=== PATIENT | female | born 1985 | race American Indian/Alaskan Native ===

== ENCOUNTER 2016-04-15 15:48 | Emergency (ER) | payer MEDICAID ==
[2016-04-15 16:49] LABS: Basophils % (Auto) 0.2 % (0.0-1.8); Eosinophils % (Auto) 0.1 % (0.0-4.3); Hematocrit 41.5 % (30.3-42.9); Hemoglobin 13.7 gm/dl (10.1-14.3); Mean Corpuscular HGB Conc 33 % (30-34); Mean Corpuscular Hemoglobin 31 pg (28-32); Mean Corpuscular Volume 93 fl (79-97); Platelet Count 381 K/mm3 (140-440); Red Blood Count 4.48 M/mm3 (3.65-5.03); Red Cell Distribution Width 13.5 % (13.2-15.2); White Blood Count 12.4 K/mm3 (4.5-11.0)
[2016-04-15 16:56] LABS: Bilirubin,Urine NEG (Negative); Blood,Urine NEG (Negative); Ketones,Urine 80 mg/dL (Negative); Leukocyte Esterase,Urine NEG (Negative); Mucus,Urine 3+ /HPF; Nitrite,Urine NEG (Negative); Urobilinogen,Urine < 2.0 mg/dL (<2.0)
[2016-04-15 17:07] LABS: Anion Gap 21 mmol/L; Blood Urea Nitrogen 12 mg/dL (7-17); Calcium 10.2 mg/dL (8.4-10.2); Carbon Dioxide 25 mmol/L (22-30); Glucose 102 mg/dL (65-100); Potassium 3.3 mmol/L (3.6-5.0); Sodium 141 mmol/L (137-145)
[2016-04-15] MEDS ORDERED: TYLENOL PO ONE (21:45)
[2016-04-15] MEDS ORDERED: ZOFRAN ODT PO ONE (21:46)
[2016-04-16] MEDS ORDERED: BENTYL IM ONE (00:45)
[2016-04-16] MEDS ORDERED: NACL 0.9% 1000 ML 1,000 ML IV ONE (00:45)
[2016-04-16] MEDS ORDERED: MORPHINE IV ONE (00:45)
[2016-04-16] MEDS ORDERED: ZOFRAN IV ONE (00:45)
--- NOTE | 2016-04-16 01:45 | Emergency Department Report ---
ED N/V/D HPI - General Chief complaint: Abdominal Pain Stated complaint: ABD PAIN /VOMITTING /3 DAYS Time Seen by Provider: 04/16/16 00:41 Source: patient Mode of arrival: Ambulatory Limitations: No Limitations - History of Present Illness Initial comments: 31-year-old female presents to the emergency department complaining of abdominal pain with nausea, vomiting, and diarrhea. Patient states symptoms have been present for the past 3 days. She has not been able to tolerate anything by mouth. Patient describes cramping abdominal pain. She also reports low back pain secondary to vomiting. She denies seeing any blood. There are no other complaints. MD complaint: nausea, vomiting, diarrhea, abdominal pain -: Gradual, days(s) (3) Description of Vomiting: watery, bilious Description of Diarrhea: water Associated Abdominal Pain: Yes Location: diffuse Radiation: none Severity: moderate Quality: cramping Consistency: constant Improves with: none Worsens with: none Associated Symptoms: denies other symptoms - Related Data Previous Rx's Medication Instructions Recorded Last Taken Type Albuterol Sulfate [Ventolin HFA] 2 puff IH Q6HR PRN #1 hfa.aer.ad 12/21/1301/23 Rx 2 PUFFS Ibuprofen [Motrin] 800 mg PO Q8HR PRN #20 tablet 09/03/15 Unknown Rx Dicyclomine [Bentyl] 20 mg PO QID PRN #20 tablet 04/16/16 Unknown Rx HYDROcodone/APAP 5-325 [[place] 1 each PO Q6HR PRN #15 tablet 04/16/16 Unknown Rx 5-325 mg TAB] Promethazine [Phenergan TAB] 25 mg PO Q6HR PRN #20 tab 04/16/16 Unknown Rx Allergies Allergy/AdvReac Type Severity Reaction Status Date / Time No Known Allergies Allergy Verified 12/21/13 10:57 ED Review of Systems ROS: Stated complaint: ABD PAIN /VOMITTING /3 DAYS Other details as noted in HPI Comment: All other systems reviewed and negative Gastrointestinal: abdominal pain, nausea, vomiting, diarrhea Musculoskeletal: back pain ED Past Medical Hx - Past Medical History Previous Medical History?: Yes Hx Hypertension: Yes (WITH ) Hx Diabetes: No Hx Deep Vein Thrombosis: No Hx Renal Disease: No Hx Sickle Cell Disease: No Hx Seizures: No Hx Asthma: Yes Hx HIV: No - Surgical History Past Surgical History?: No - Family History Family history: no significant - Social History Smoking Status: Current Every Day Smoker Substance Use Type: Alcohol, Marijuana, Non Opiate Pain - Medications Home Medications: Home Medications Medication Instructions Recorded Confirmed Last Taken Type Albuterol Sulfate [Ventolin HFA] 2 puff IH Q6HR PRN #1 hfa.aer.ad 12/21/1301/2501/23/14 Rx 2 PUFFS Ibuprofen [Motrin] 800 mg PO Q8HR PRN #20 tablet 09/03/15 Unknown Rx Dicyclomine [Bentyl] 20 mg PO QID PRN #20 tablet 04/16/16 Unknown Rx HYDROcodone/APAP 5-325 [[place] 1 each PO Q6HR PRN #15 tablet 04/16/16 Unknown Rx 5-325 mg TAB] Promethazine [Phenergan TAB] 25 mg PO Q6HR PRN #20 tab 04/16/16 Unknown Rx ED Physical Exam - General Limitations: No Limitations General appearance: alert, in no apparent distress - Head Head exam: Present: atraumatic, normocephalic - Eye Eye exam: Present: normal appearance, PERRL, EOMI - ENT ENT exam: Present: normal exam, normal orophraynx, mucous membranes moist - Neck Neck exam: Present: normal inspection, full ROM. Absent: tenderness - Respiratory Respiratory exam: Present: normal lung sounds bilaterally. Absent: respiratory distress - Cardiovascular Cardiovascular Exam: Present: regular rate, normal rhythm, normal heart sounds - GI/Abdominal GI/Abdominal exam: Present: soft, normal bowel sounds. Absent: distended, tenderness - Extremities Exam Extremities exam: Present: normal inspection, full ROM. Absent: tenderness - Back Exam Back exam: Present: normal inspection, full ROM. Absent: tenderness - Neurological Exam Neurological exam: Present: alert, oriented X3. Absent: motor sensory deficit - Skin Skin exam: Present: warm, dry, intact ED Course Vital Signs 04/15/16 04/15/16 04/15/16 16:04 21:30 21:43 Temperature 99.3 F 98.7 F Pulse Rate 63 58 L Respiratory 20 18 20 Rate Blood Pressure 133/87 143/82 Blood Pressure [Left] O2 Sat by Pulse 100 100 Oximetry 04/16/16 00:40 Temperature 98.5 F Pulse Rate 59 L Respiratory 18 Rate Blood Pressure Blood Pressure 138/82 [Left] O2 Sat by Pulse 100 Oximetry ED Medical Decision Making - Lab Data Result diagrams: 04/15/16 16:37 04/15/16 16:37 - Medical Decision Making Laboratory results reviewed and discussed with the patient. Patient reports feeling much better following medication. Patient will be discharged home at this time. - Differential Diagnosis gastroenteritis, dehydration, electrolyte abnormality Critical care attestation.: If time is entered above; I have spent that time in minutes in the direct care of this critically ill patient, excluding procedure time. ED Disposition Clinical Impression: Acute gastroenteritis Disposition: DISCHARGED TO HOME OR SELFCARE Is pt being admited?: No Condition: Stable Instructions: Gastroenteritis (ED) Prescriptions: Dicyclomine [Bentyl] 20 mg PO QID PRN #20 tablet PRN Reason: Pain HYDROcodone/APAP 5-325 [[place] 5-325 mg TAB] 1 each PO Q6HR PRN #15 tablet PRN Reason: Pain Promethazine [Phenergan TAB] 25 mg PO Q6HR PRN #20 tab PRN Reason: Nausea Referrals: PRIMARY CARE, [Primary Care Provider] - 3-5 Days Time of Disposition: 02:20
[2016-04-16 03:07] VITALS: BP 102/47
== END 2016-04-16 02:54 | disposition home or self-care (01) ==
LOC: ED 15:48
DX: K52.9 Noninfective gastroenteritis and colitis, unspecified (principal); J45.909 Unspecified asthma, uncomplicated; F17.200 Nicotine dependence, unspecified, uncomplicated; F12.10 Cannabis abuse, uncomplicated
CPT/HCPCS: 36415; 80048; 81001; 81025; 82962; 85025; 96361; 96372; 96374; 96375; 99284; J0500; J2270; J2405; J7030; Q0162

== ENCOUNTER 2017-03-14 14:13 | Emergency (ER) | payer MEDICAID ==
[2017-03-14] MEDS ORDERED: ZOFRAN ODT PO ONE ×2 (15:11→22:40)
[2017-03-14] MEDS ORDERED: ZOFRAN ODT ONE (15:12)
[2017-03-14] MEDS ORDERED: MORPHINE IV ONE (16:53)
[2017-03-14] MEDS ORDERED: ZOFRAN IV ONE (17:15)
[2017-03-14 17:21] LABS: Hemoglobin 14.3 gm/dl (10.1-14.3); Mean Corpuscular HGB Conc 34 % (30-34); Mean Corpuscular Hemoglobin 32 pg (28-32); Mean Corpuscular Volume 93 fl (79-97); Platelet Count 308 K/mm3 (140-440); Red Blood Count 4.52 M/mm3 (3.65-5.03); Red Cell Distribution Width 13.8 % (13.2-15.2)
[2017-03-14 17:39] LABS: Alanine Aminotransferase 12 units/L (7-56); Albumin 4.8 g/dL (3.9-5); BUN/Creatinine Ratio 16; Blood Urea Nitrogen 11 mg/dL (7-17); Calcium 9.9 mg/dL (8.4-10.2); Hemolysis Index 13; Lipase 25 units/L (13-60)
[2017-03-14] MEDS ORDERED: ATIVAN IV ONE (17:55)
[2017-03-14] MEDS ORDERED: NACL 0.9% 500 ML 500 ML IV ONE (17:55)
--- NOTE | 2017-03-14 17:57 | Emergency Department Report ---
HPI - HPI HPI: The patient is a 32-year-old female with a history of asthma, whom presents for evaluation of chest pain and abdominal pain. The patient reports constant severe midsternal chest pain and upper abdominal pain since last night at 2 AM, radiating to her back, 10/10 in severity, sharp in quality, and exacerbated with taking deep breaths. She states that she began vomiting severely and repeatedly since last night. She also admits to shortness of breath. The patient denies fever, trauma to the abdomen or chest, cough, hemoptysis, diarrhea, blood in the stool, dark tarry stool, dysuria, hematuria, flank pain, genital discharge, inability to pass flatus. <SUREKHA GALVIN - Last Filed: 03/14/17 20:16> <DAVID VILLAGOMEZ - Last Filed: 03/14/17 22:39> - General Chief Complaint: Chest Pain Time Seen by Provider: 03/14/17 16:32 ED Past Medical Hx - Past Medical History Previous Medical History?: Yes Hx Hypertension: Yes (WITH ) Hx Diabetes: No Hx Deep Vein Thrombosis: No Hx Renal Disease: No Hx Sickle Cell Disease: No Hx Seizures: No Hx Asthma: Yes Hx HIV: No - Surgical History Past Surgical History?: No - Social History Smoking Status: Never Smoker Substance Use Type: Alcohol <SUREKHA GALVIN - Last Filed: 03/14/17 20:16> <DAVID VILLAGOMEZ - Last Filed: 03/14/17 22:39> - Medications Home Medications: Home Medications Medication Instructions Recorded Confirmed Last Taken Type Albuterol Sulfate [Ventolin HFA] 2 puff IH Q6HR PRN #1 hfa.aer.ad 12/21/1301/2501/23/14 Rx 2 PUFFS Ibuprofen [Motrin] 800 mg PO Q8HR PRN #20 tablet 09/03/15 Unknown Rx Dicyclomine [Bentyl] 20 mg PO QID PRN #20 tablet 04/16/16 Unknown Rx HYDROcodone/APAP 5-325 [[place] 1 each PO Q6HR PRN #15 tablet 04/16/16 Unknown Rx 5-325 mg TAB] Promethazine [Phenergan TAB] 25 mg PO Q6HR PRN #20 tab 03/10/17 Unknown Rx Benzonatate [Tessalon Perles] 100 mg PO Q8HR #20 capsule 03/14/17 Unknown Rx Famotidine [Pepcid] 20 mg PO BID PRN #30 tablet 03/14/17 Unknown Rx Omeprazole Magnesium [PriLOSEC Otc] 20 mg PO QDAY #14 tablet. 03/14/17 Unknown Rx Ondansetron [Zofran TAB] 4 mg PO Q8HR PRN #20 tablet 03/14/17 Unknown Rx traMADol [Ultram 50 MG tab] 50 mg PO Q6HR PRN #15 tablet 03/14/17 Unknown Rx ED Review of Systems ROS: Stated complaint: ASTHMA/VIDAL Other details as noted in HPI Constitutional: denies: fever ENT: denies: throat or neck pain Respiratory: reports shortness of breath Cardiovascular: reports chest pain Endocrine: denies unexplained weight loss or gain Gastrointestinal: reports abdominal pain, nausea Genitourinary: denies: dysuria Musculoskeletal: denies: leg swelling Skin: denies: rash Neurological: denies: headache Hematological/Lymphatic: denies: easy bleeding or easy bruising Psych: denies sadness or hopelessness <SUREKHA GALVIN - Last Filed: 03/14/17 20:16> ROS: Stated complaint: ASTHMA/VIDAL Other details as noted in HPI <DAVID VILLAGOMEZ - Last Filed: 03/14/17 22:39> Physical Exam - Physical Exam Vital Signs: Vital Signs 03/14/17 14:39 Temperature 97.1 F L Pulse Rate 50 L Respiratory 18 Rate Blood Pressure 126/80 O2 Sat by Pulse 98 Oximetry Physical Exam: General: well-nourished, well-developed, no acute distress Head: Normocephalic, atraumatic Eyes: normal sclera ENT: Mucous membranes are pale and dry Neck: trachea midline, neck supple, No neck stiffness, no cervical adenopathy Respiratory: Breath sounds equal bilaterally, no wheezing, rales, or rhonchi Cardio: S1 and S2 present, no murmurs, rubs, gallops, capillary refill is delayed Abdomen: Normoactive bowel sounds, soft abdomen, epigastric tenderness to palpation present, no rigidity, no guarding or rebound tenderness Musc: No pitting edema Skin: No rash Neuro: no facial drooping, normal speech Psych: Normal affect <SUREKHA GALVIN - Last Filed: 03/14/17 20:16> - Physical Exam Vital Signs: Vital Signs 03/14/17 03/14/17 14:39 21:57 Temperature 97.1 F L 99.4 F Pulse Rate 50 L 66 Respiratory 18 14 Rate Blood Pressure 126/80 Blood Pressure 109/55 [Right] O2 Sat by Pulse 98 98 Oximetry <DAVID VILLAGOMEZ - Last Filed: 03/14/17 22:39> ED Course Vital Signs 03/14/17 14:39 Temperature 97.1 F L Pulse Rate 50 L Respiratory 18 Rate Blood Pressure 126/80 O2 Sat by Pulse 98 Oximetry <SUREKHA GALVIN P - Last Filed: 03/14/17 20:16> Vital Signs 03/14/17 03/14/17 14:39 21:57 Temperature 97.1 F L 99.4 F Pulse Rate 50 L 66 Respiratory 18 14 Rate Blood Pressure 126/80 Blood Pressure 109/55 [Right] O2 Sat by Pulse 98 98 Oximetry <DAVID VILLAGOMEZ - Last Filed: 03/14/17 22:39> ED Medical Decision Making - Lab Data Result diagrams: 03/14/17 17:01 03/14/17 17:01 - Medical Decision Making The patient was seen and examined by myself. The patient is placed on a quality assurance monitor chassis and continuous pulse ox. On initial evaluation, the patient was found to be in no distress. EKG was negative for findings suggestive of acute cardiac infarct. Labs and imaging are obtained. Chest x-ray is negative for pneumothorax, focal consolidation, pulmonary vascular congestion, pleural effusion, or other obvious acute cardiopulmonary disease process. IV access was established and the patient was given pain medicine. Lab results is in mild leukocytosis, WBC 16.2, and otherwise labs were non- concerning including nml levels of troponin, hemoglobin, hematocrit, electrolytes, renal function, and negative test. The patient was reevaluated and reported that their symptoms were markedly improved. As the patient has a HERNANDO risk score less than 2, and a well's score less than 2, the patient is at low risk of ACS or pulmonary emboli etiology of their symptoms. The patient is stable for discharge with outpatient follow-up. The patient is given follow-up and return instructions. The patient expressed understanding and agreed with the plan. The patient is discharged in stable condition. <SUREKHA GALVIN P - Last Filed: 03/14/17 20:16> - Lab Data Result diagrams: 03/14/17 17:01 03/14/17 17:01 - Medical Decision Making A/P: GERD, follow-up test results 1-request of Dr. Galvin I followed up CT report and labs. Unremarkable no significant abnormalities. I discussed leukocytosis with Dr. Galvin upon sign out as per Dr. Galvin this is likely from retching and stress. CT report shows no pneumomediastinum PE or other anomaly on CT 2-antacids, omeprazole Pepcid 3-advised patient to avoid smoking caffeine soda greasy foods and spicy foods and other foods that are known to cause acid reflux 4- patient referred to primary care and gastroenterology. I stressed the importance of follow-up with gastroenterology. <DAVID VILLAGOMEZ - Last Filed: 03/14/17 22:39> Critical care attestation.: If time is entered above; I have spent that time in minutes in the direct care of this critically ill patient, excluding procedure time. <SUREKHA GALVIN P - Last Filed: 03/14/17 20:16> Critical care attestation.: If time is entered above; I have spent that time in minutes in the direct care of this critically ill patient, excluding procedure time. <DAVID VILLAGOMEZ - Last Filed: 03/14/17 22:39> ED Disposition Is pt being admited?: No Does the pt Need Aspirin: No Time of Disposition: 17:58 <SUREKHA GALVIN - Last Filed: 03/14/17 20:16> Is pt being admited?: No Does the pt Need Aspirin: No <DAVID VILLAGOMEZ - Last Filed: 03/14/17 22:39> Clinical Impression: GERD (gastroesophageal reflux disease) Qualifiers: Esophagitis presence: with esophagitis Qualified Code(s): K21.0 - Gastro- esophageal reflux disease with esophagitis Disposition: TO HOME OR SELFCARE Condition: Stable Instructions: Chest Pain (ED), Diet for Ulcers and Gastritis (ED), Gastroenteritis (ED), Gastroesophageal Reflux Disease (ED), Acute Abdominal Pain (ED) Prescriptions: Benzonatate [Tessalon Perles] 100 mg PO Q8HR #20 capsule Famotidine [Pepcid] 20 mg PO BID PRN #30 tablet PRN Reason: Indigestion Omeprazole Magnesium [PriLOSEC Otc] 20 mg PO QDAY #14 tablet. Ondansetron [Zofran TAB] 4 mg PO Q8HR PRN #20 tablet PRN Reason: Nausea traMADol [Ultram 50 MG tab] 50 mg PO Q6HR PRN #15 tablet PRN Reason: Pain Referrals: [facility] [Provider Group] - 3-5 Days [facility] [Outside] - 3-5 Days [facility] [Outside] - 3-5 Days Forms: Work/School Release Form(ED)
[2017-03-14 18:02] LABS: Basophils % (Manual) 0 % (0.0-1.8); Eosinophils % (Manual) 0 % (0.0-4.3); Total Cells Counted 100
[2017-03-14 18:03] LABS: RBC Morphology Normal
--- NOTE | 2017-03-14 21:19 | Cat Scan Report ---
FINAL REPORT PROCEDURE: CT ANGIO CHEST TECHNIQUE: Computerized axial tomographic angiography of the chest and pulmonary arteries was performed after the IV injection of iodinated nonionic contrast. The image data was postprocessed using maximum intensity projection (MIP) and 2-dimensional multiplanar reformatted (MPR) techniques. The examination is specifically tailored to the evaluation of the pulmonary arteries per clinical request. HISTORY: Short of breath 786.09, chest pain 786.50, CP, SOB, severe vomiting, r/o boerhaave vs PE COMPARISON: No prior studies are available for comparison. FINDINGS: The left thyroid gland appears prominent. Heart and pericardium: No pericardial effusion or thickening. Thoracic aorta: No aneurysm or dissection. Pulmonary vasculature: Normal. No pulmonary emboli. Lymph nodes: No enlarged thoracic lymph nodes. Lungs: Normal. Pleural space: No effusion, thickening, or pneumothorax. Musculoskeletal structures: No significant abnormality. Upper abdominal structures: No significant abnormality. No pneumomediastinum is seen to suggest esophageal injury. IMPRESSION: No acute abnormality is identified. Left thyroid lobe appears prominent.
[2017-03-14 21:58] VITALS: BP 109/55
[2017-03-14] MEDS ORDERED: NORCO 5/325 PO ONE (22:39)
== END 2017-03-14 22:54 | disposition home or self-care (01) ==
LOC: ED 14:13
DX: K21.0 Gastro-esophageal reflux disease with esophagitis (principal); J45.909 Unspecified asthma, uncomplicated
CPT/HCPCS: 36415; 71275; 80053; 82550; 83690; 84484; 84703; 85007; 85025; 93005; 93010; 96361; 96374; 96375; 99284; J2060; J2270; J2405; J7040; Q9967; Q0162

== ENCOUNTER 2018-05-09 00:39 | Emergency (ER) | payer MEDICAID ==
[2018-05-09] MEDS ORDERED: ASPIRIN PO ONE (00:52)
[2018-05-09 01:25] LABS: Basophils # (Auto) 0.1 K/mm3 (0.0-0.1); Basophils % (Auto) 0.5 % (0.0-1.8); Eosinophils # (Auto) 0.2 K/mm3 (0.0-0.4); Eosinophils % (Auto) 1.7 % (0.0-4.3); Hematocrit 37.2 % (30.3-42.9); Hemoglobin 12.8 gm/dl (10.1-14.3); Lymphocytes # (Auto) 2.4 K/mm3 (1.2-5.4); Lymphocytes % (Auto) 21.9 % (13.4-35.0); Mean Corpuscular HGB Conc 34 % (30-34); Mean Corpuscular Volume 94 fl (79-97); Monocytes # (Auto) 0.7 K/mm3 (0.0-0.8); Platelet Count 269 K/mm3 (140-440); Red Blood Count 3.94 M/mm3 (3.65-5.03); Red Cell Distribution Width 13.4 % (13.2-15.2)
[2018-05-09 01:38] LABS: BUN/Creatinine Ratio 9; Blood Urea Nitrogen 9 mg/dL (7-17); Calcium 9.1 mg/dL (8.4-10.2); Hemolysis Index 5
--- NOTE | 2018-05-09 01:45 | XRay Report ---
PROCEDURE: XR CHEST 1V AP TECHNIQUE: A single view the chest was obtained. HISTORY: Chest Pain COMPARISONS: None FINDINGS: The lungs are clear. The heart size is normal. Pleural fluid is not seen. The skeletal structures yvonne ear normal. IMPRESSION: Within normal limits.. This document is electronically signed by Julio C Lake MD., May 09 2018 01:43:30 AM ET
[2018-05-09] MEDS ORDERED: IBUPROFEN PO ONE (07:53)
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
[2018-05-09 08:12] VITALS: BP 137/84
== END 2018-05-09 08:11 | disposition home or self-care (01) ==
LOC: ED 00:39
DX: M54.6 Pain in thoracic spine (principal); J45.909 Unspecified asthma, uncomplicated
CPT/HCPCS: 36415; 71045; 80048; 84484; 85025; 93005; 93010; 99284

== ENCOUNTER 2019-01-08 22:18 | Emergency (ER) | payer SELFPAY ==
[2019-01-08 22:25] VITALS: BP 131/89
--- NOTE | 2019-01-09 00:32 | XRay Report ---
Left shoulder 3 views INDICATION: Left shoulder pain for the past 3 months IMPRESSION: No fracture or subluxation identified. Signer Name: Mike Canela MD Signed: 01/09/2019 12:28 AM Workstation Name: [id number]
--- NOTE | 2019-01-09 00:58 | Emergency Department Report ---
ED Upper Extremity Inj HPI - General Chief Complaint: Extremity Injury, Upper Stated Complaint: LEFT ARM PAIN Time Seen by Provider: 01/08/19 23:48 Source: patient Mode of arrival: Ambulatory Limitations: No Limitations - History of Present Illness Complaint: Injury to:: left, shoulder, arm -: This evening Other Extremity Injury: Arm: Left, Shoulder: Left Other Injuries: none Improves With: immobilization Worsens With: movement of extremity Context: direct blow Associated Symptoms: denies other symptoms - Related Data Previous Rx's Medication Instructions Recorded Last Taken Type Ibuprofen [Motrin] 800 mg PO Q8HR PRN #20 tablet 09/03/15 Unknown Rx Dicyclomine [Bentyl] 20 mg PO QID PRN #20 tablet 04/16/16 Unknown Rx HYDROcodone/APAP 5-325 [[place] 1 each PO Q6HR PRN #15 tablet 04/16/16 Unknown Rx 5-325 mg TAB] Promethazine [Phenergan TAB] 25 mg PO Q6HR PRN #20 tab 04/16/16 Unknown Rx Benzonatate [Tessalon Perles] 100 mg PO Q8HR #20 capsule 03/14/17 Unknown Rx Famotidine [Pepcid] 20 mg PO BID PRN #30 tablet 03/14/17 Unknown Rx Omeprazole Magnesium [PriLOSEC Otc] 20 mg PO QDAY #14 tablet.dr 03/14/17 Unknown Rx Ondansetron [Zofran TAB] 4 mg PO Q8HR PRN #20 tablet 03/14/17 Unknown Rx traMADoL [Ultram 50 MG tab] 50 mg PO Q6HR PRN #15 tablet 03/14/17 Unknown Rx Albuterol Sulfate [Ventolin HFA] 2 puff IH Q6HR PRN #1 hfa.aer.ad 05/09/18 Unknown Rx Ibuprofen [Motrin 600 MG tab] 600 mg PO Q8H PRN #21 tablet 05/09/18 Unknown Rx Allergies Allergy/AdvReac Type Severity Reaction Status Date / Time No Known Allergies Allergy Verified 12/21/13 10:57 ED Review of Systems ROS: Stated complaint: LEFT ARM PAIN Other details as noted in HPI Comment: All other systems reviewed and negative Constitutional: denies: chills, fever Respiratory: denies: cough, shortness of breath, SOB with exertion Gastrointestinal: denies: abdominal pain, nausea, vomiting Musculoskeletal: denies: back pain Neurological: denies: headache, weakness ED Past Medical Hx - Past Medical History Previous Medical History?: Yes Hx Hypertension: Yes (WITH ) Hx Diabetes: No Hx Deep Vein Thrombosis: No Hx Renal Disease: No Hx Sickle Cell Disease: No Hx Seizures: No Hx Asthma: Yes Hx HIV: No - Surgical History Past Surgical History?: Yes Additional Surgical History: tubes tied - Social History Smoking Status: Never Smoker Substance Use Type: None - Medications Home Medications: Home Medications Medication Instructions Recorded Confirmed Last Taken Type Ibuprofen [Motrin] 800 mg PO Q8HR PRN #20 tablet 09/03/15 Unknown Rx Dicyclomine [Bentyl] 20 mg PO QID PRN #20 tablet 04/16/16 Unknown Rx HYDROcodone/APAP 5-325 [[place] 1 each PO Q6HR PRN #15 tablet 04/16/16 Unknown Rx 5-325 mg TAB] Promethazine [Phenergan TAB] 25 mg PO Q6HR PRN #20 tab 04/16/16 Unknown Rx Benzonatate [Tessalon Perles] 100 mg PO Q8HR #20 capsule 03/14/17 Unknown Rx Famotidine [Pepcid] 20 mg PO BID PRN #30 tablet 03/14/17 Unknown Rx Omeprazole Magnesium [PriLOSEC Otc] 20 mg PO QDAY #14 tablet.dr 03/14/17 Unknown Rx Ondansetron [Zofran TAB] 4 mg PO Q8HR PRN #20 tablet 03/14/17 Unknown Rx traMADoL [Ultram 50 MG tab] 50 mg PO Q6HR PRN #15 tablet 03/14/17 Unknown Rx Albuterol Sulfate [Ventolin HFA] 2 puff IH Q6HR PRN #1 hfa.aer.ad 05/09/18 Unknown Rx Ibuprofen [Motrin 600 MG tab] 600 mg PO Q8H PRN #21 tablet 05/09/18 Unknown Rx ED Physical Exam - General Limitations: No Limitations General appearance: alert, in no apparent distress - Head Head exam: Present: atraumatic, normocephalic, normal inspection - Eye Eye exam: Present: normal appearance - ENT ENT exam: Present: normal exam, normal orophraynx, mucous membranes moist - Neck Neck exam: Present: normal inspection, full ROM. Absent: tenderness, meningismus, lymphadenopathy, thyromegaly - Respiratory Respiratory exam: Present: normal lung sounds bilaterally - Cardiovascular Cardiovascular Exam: Present: regular rate, normal rhythm, normal heart sounds - GI/Abdominal GI/Abdominal exam: Present: soft. Absent: distended, tenderness, guarding - Extremities Exam Extremities exam: Present: normal inspection, full ROM, normal capillary refill. Absent: tenderness, pedal edema, joint swelling, calf tenderness - Back Exam Back exam: Present: normal inspection, full ROM. Absent: CVA tenderness (R), CVA tenderness (L) - Neurological Exam Neurological exam: Present: alert, oriented X3, CN II-XII intact - Skin Skin exam: Present: warm, intact, normal color ED Course Vital Signs 01/08/19 01/08/19 22:21 22:29 Temperature 98.4 F 98.4 F Pulse Rate 84 83 Respiratory 18 18 Rate Blood Pressure 131/89 131/89 O2 Sat by Pulse 99 100 Oximetry ED Medical Decision Making - Radiology Data Radiology results: report reviewed Left shoulder x-ray is unremarkable. Critical care attestation.: If time is entered above; I have spent that time in minutes in the direct care of this critically ill patient, excluding procedure time. ED Disposition Clinical Impression: Left arm pain Disposition: DC-01 TO HOME OR SELFCARE Is pt being admited?: No Condition: Stable Instructions: Muscle Strain (ED) Referrals: [facility] [Provider Group] - 3-5 Days
== END 2019-01-09 01:30 | disposition home or self-care (01) ==
LOC: ED 22:18
DX: M79.602 Pain in left arm (principal); J45.909 Unspecified asthma, uncomplicated; Z79.899 Other long term (current) drug therapy